=== PATIENT | male | born 1990 | race Caucasian/White ===

== ENCOUNTER 2018-05-07 17:06 | Emergency (ER) | payer MEDICAID, OTHER ==
[~2018-05-07] VITALS: Ht 182.9 cm; Wt 87.5 kg
[~2018-05-07 17:06] MED LIST: DICY10CA88 PO; HYDR25SU33 RC; NO HOME MEDS; VALA10002 PO
[2018-05-07 17:12] VITALS: BP 157/104
[2018-05-07 17:26] LABS: BASOPHILS % (AUTO) 0.2 % (0-1); EOSINOPHILS % (AUTO) 0.4 % (0-6); HEMATOCRIT 45.4 % (42.0-52.0); HEMOGLOBIN 15.8 g/dl (14.0-17.9); LYMPHOCYTES # (AUTO) 2.1 X10'3 (1.1-4.8); LYMPHOCYTES % (AUTO) 36.1 % (21-51); MEAN CORPUSCULAR HEMOGLOBIN 28.8 PG (27.0-31.0); MEAN CORPUSCULAR HGB CONC 34.8 % (33.0-36.5); MEAN CORPUSCULAR VOLUME 82.6 FL (78-98); MONOCYTES # (AUTO) 0.5 X10'3 (0-0.9); MONOCYTES % (AUTO) 8.6 % (2-12); NEUTROPHILS # (AUTO) 3.1 X10'3 (1.8-7.7); NEUTROPHILS % (AUTO) 54.7 % (42-75); PLATELET COUNT 261 X10'3 (140-440); RED BLOOD COUNT 5.49 X10'6 (4.70-6.10); RED CELL DISTRIBUTION WIDTH 12.4 % (11.5-14.5); WHITE BLOOD COUNT 5.7 X10'3 (4.5-11.0)
[2018-05-07 17:37] LABS: PARTIAL THROMBOPLASTIN TIME 23 SECONDS (22-32)
[2018-05-07 17:41] LABS: ALANINE AMINOTRANSFERASE 106 U/L (12-78); ALBUMIN 4.5 G/DL (3.4-5.0); ALBUMIN/GLOBULIN RATIO 1.1 (1.1-1.5); ALKALINE PHOSPHATASE 139 IU/L (46-116); ANION GAP 12 (8-16); ASPARTATE AMINO TRANSFERASE 46 U/L (10-37); BILIRUBIN,TOTAL 0.5 MG/DL (0.1-1.0); BLOOD UREA NITROGEN 10 MG/DL (7-18); BUN/CREATININE RATIO 9.3 (5.4-32.0); CALCIUM 9.2 MG/DL (8.5-10.1); CHLORIDE 105 MMOL/L (99-107); CREATININE 1.08 MG/DL (0.60-1.10); GLUCOSE 89 MG/DL (70-104); POTASSIUM 3.7 MMOL/L (3.5-5.1); SODIUM 143 MMOL/L (135-145); TOTAL CARBON DIOXIDE 25.9 MMOL/L (24-32); TOTAL PROTEIN 8.7 G/DL (6.4-8.2); eGFR 81 ML/MIN
== END 2018-05-07 23:20 | disposition left against medical advice (07) ==
LOC: ER 17:07
DX: R07.9 Chest pain, unspecified (principal); Z53.21 Procedure and treatment not carried out due to patient leaving prior to being seen by health care provider
CPT/HCPCS: 36415; 71045; 80053; 84484; 85025; 85610; 85730; 99281

== ENCOUNTER 2018-11-04 14:17 | Emergency (ER) | payer OTHER ==
[~2018-11-04] VITALS: Ht 182.9 cm; Wt 97.0 kg
[2018-11-04 14:20] VITALS: BP 160/101
[2018-11-04] MEDS ORDERED: LIDOcaine 1% w/epiNEPHrine 1:200,000 30ml vial IM ONE (15:45)
[2018-11-04] MEDS ORDERED: AMOX-422 PO (15:47)
== END 2018-11-04 16:01 | disposition home or self-care (01) ==
LOC: ER 14:17
DX: S02.5XXA Fracture of tooth (traumatic), initial encounter for closed fracture (principal); Z56.0 Unemployment, unspecified; Z88.5 Allergy status to narcotic agent; Z79.899 Other long term (current) drug therapy; X58.XXXA Exposure to other specified factors, initial encounter; Y93.89 Activity, other specified; Y92.89 Other specified places as the place of occurrence of the external cause; Y99.8 Other external cause status
CPT/HCPCS: 64402; 99284

== ENCOUNTER 2019-11-13 21:04 | Emergency (ER) | payer MEDICAID ==
[~2019-11-13] VITALS: Ht 182.9 cm; Wt 76.4 kg
[~2019-11-13 21:04] MED LIST changes: +ONDA8TAB6 PO
[2019-11-13 22:32] LABS: BASOPHILS % (AUTO) 0.1 % (0-1); EOSINOPHILS % (AUTO) 0 % (0-6); HEMATOCRIT 45.4 % (42.0-52.0); LYMPHOCYTES # (AUTO) 0.5 X10'3 (1.1-4.8); LYMPHOCYTES % (AUTO) 5.8 % (21-51); MEAN CORPUSCULAR HEMOGLOBIN 28.6 PG (27.0-31.0); MEAN CORPUSCULAR HGB CONC 35.1 g/dL (33.0-36.5); MEAN CORPUSCULAR VOLUME 81.4 FL (78-98); MEAN PLATELET VOLUME 8.9 FL (7.4-10.4); MONOCYTES # (AUTO) 0.4 X10'3 (0-0.9); MONOCYTES % (AUTO) 4.7 % (2-12); NEUTROPHILS # (AUTO) 7.7 X10'3 (1.8-7.7); NEUTROPHILS % (AUTO) 89.4 % (42-75); PLATELET COUNT 165 X10'3 (140-440); RED BLOOD COUNT 5.57 X10'6 (4.70-6.10); RED CELL DISTRIBUTION WIDTH 12.8 % (11.5-14.5); WHITE BLOOD COUNT 8.6 X10'3 (4.5-11.0)
[2019-11-13 22:39] LABS: ALANINE AMINOTRANSFERASE 59 U/L (12-78); ALBUMIN 4.1 G/DL (3.4-5.0); ALKALINE PHOSPHATASE 107 IU/L (46-116); ANION GAP 7 (8-16); ASPARTATE AMINO TRANSFERASE 24 U/L (10-37); BILIRUBIN,TOTAL 0.9 MG/DL (0.1-1.0); BLOOD UREA NITROGEN 13 MG/DL (7-18); BUN/CREATININE RATIO 9.6 (5.4-32.0); CHLORIDE 102 MMOL/L (99-107); CREATININE 1.35 MG/DL (0.60-1.10); GLUCOSE 97 MG/DL (70-104); POTASSIUM 3.9 MMOL/L (3.5-5.1); SODIUM 138 MMOL/L (135-145); TOTAL CARBON DIOXIDE 29.3 MMOL/L (24-32); TOTAL PROTEIN 8.1 G/DL (6.4-8.2); eGFR 62 ML/MIN
--- NOTE | 2019-11-13 22:53 | NUR ---
PT GOING TO RESTROOM FOR UA SAMPLE
[2019-11-13 23:26] VITALS: BP 140/90
[2019-11-13 23:29] LABS: URINE AMPHETAMINE SCREEN NEGATIVE (Neg); URINE BARBITUATE SCREEN NEGATIVE (Neg); URINE BENZODIAZEPINES SCREEN NEGATIVE (Neg); URINE CANNABINOID SCREEN NEGATIVE (Neg); URINE COCAINE SCREEN POSITIVE (Neg); URINE METHADONE SCREEN NEGATIVE (Neg); URINE OPIATE SCREEN NEGATIVE (Neg); URINE PHENCYCLIDINE SCREEN NEGATIVE (Neg)
== END 2019-11-13 23:28 | disposition home or self-care (01) ==
LOC: ER 21:05
DX: K62.5 Hemorrhage of anus and rectum (principal); Z56.0 Unemployment, unspecified; Z88.5 Allergy status to narcotic agent
CPT/HCPCS: 36415; 80053; 80305; 85025; 99283

== ENCOUNTER 2020-04-16 01:11 | Emergency (ER) | payer BC, MEDICAID ==
[~2020-04-16] VITALS: Ht 182.9 cm; Wt 106.8 kg
[2020-04-16] MEDS ORDERED: PENI500T2 PO (02:23)
[2020-04-16] MEDS ORDERED: ACET-3068 PO (02:23)
[2020-04-16] MEDS ORDERED: penicillin V potassium 500mg tablet PO ONE (02:40)
[2020-04-16] MEDS ORDERED: ibuprofen tablet 400 MG TABLET PO ONE (02:40)
[2020-04-16 02:47] VITALS: BP 156/106
== END 2020-04-16 02:49 | disposition home or self-care (01) ==
LOC: ER 01:11
DX: K08.89 Other specified disorders of teeth and supporting structures (principal); F10.10 Alcohol abuse, uncomplicated; Z88.5 Allergy status to narcotic agent; Z79.899 Other long term (current) drug therapy; Y90.9 Presence of alcohol in blood, level not specified
CPT/HCPCS: 99283

== ENCOUNTER 2021-02-16 08:11 | Emergency (ER) | payer MEDICAID ==
[~2021-02-16] VITALS: Ht 182.9 cm; Wt 98.2 kg
[2021-02-16 08:28] VITALS: BP 129/85
[2021-02-16] MEDS ORDERED: PENI500T2 PO (09:06)
== END 2021-02-16 09:26 | disposition home or self-care (01) ==
LOC: ER 08:12
DX: K04.7 Periapical abscess without sinus (principal); F17.200 Nicotine dependence, unspecified, uncomplicated; Z72.89 Other problems related to lifestyle; Z88.6 Allergy status to analgesic agent; Z88.0 Allergy status to penicillin; Z88.8 Allergy status to other drugs, medicaments and biological substances
CPT/HCPCS: 99283

== ENCOUNTER → 2021-09-21 | Emergency (ER) | payer MEDICAID, OTHER ==
[~2021-09-21] VITALS: Ht 182.9 cm; Wt 104.5 kg
[~2021-09-21] MED LIST changes: +CLIN300C70 PO; +HYDR-3965 PO
[2021-09-21 17:49] VITALS: BP 136/78
== END | disposition home or self-care (01) ==
LOC: ER 17:41
DX: K08.89 Other specified disorders of teeth and supporting structures (principal); K04.7 Periapical abscess without sinus; K02.9 Dental caries, unspecified; Z72.89 Other problems related to lifestyle; Z88.5 Allergy status to narcotic agent; Z79.2 Long term (current) use of antibiotics; Z79.899 Other long term (current) drug therapy
CPT/HCPCS: 99283

== ENCOUNTER 2022-03-17 21:24 | Emergency (ER) | payer MEDICAID, OTHER ==
[~2022-03-17] VITALS: Ht 182.9 cm; Wt 100.0 kg
[~2022-03-17 21:24] MED LIST changes: -CLIN300C70 PO; -HYDR-3965 PO
[2022-03-17] MEDS ORDERED: amox tr/potassium clavulanate 875/125mg TAB PO ONE (23:40)
[2022-03-18] MEDS ORDERED: AMOX-117 PO (00:02)
[2022-03-18] MEDS ORDERED: HYDR-3965 PO (00:02)
[2022-03-18] MEDS ORDERED: HYDROcodone/acetaminophen 5mg/325mg tablet PO ONE (00:05)
[2022-03-18 00:15] VITALS: BP 134/84
== END 2022-03-18 00:17 | disposition home or self-care (01) ==
LOC: ER 21:24
DX: K04.7 Periapical abscess without sinus (principal); Z72.89 Other problems related to lifestyle; Z87.19 Personal history of other diseases of the digestive system; Z79.899 Other long term (current) drug therapy; Z79.2 Long term (current) use of antibiotics
CPT/HCPCS: 99283

== ENCOUNTER 2023-12-01 19:05 | Emergency (ER) | payer SELFPAY ==
[~2023-12-01] VITALS: Ht 182.9 cm; Wt 108.7 kg
[2023-12-01 19:06] VITALS: BP 176/112; PULSE 80; RESP 16; TEMP 98.5; O2SAT 100
[2023-12-01] MEDS ORDERED: NAPR-56 PO (19:10)
[2023-12-01] MEDS ORDERED: DOXY-1 PO (19:10)
== END 2023-12-01 19:19 | disposition home or self-care (01) ==
LOC: ER 19:06
DX: K04.7 Periapical abscess without sinus (principal); F10.10 Alcohol abuse, uncomplicated; Y90.9 Presence of alcohol in blood, level not specified
CPT/HCPCS: 99283

== ENCOUNTER 2023-12-02 19:52 | Emergency (ER) | payer SELFPAY ==
[~2023-12-02] VITALS: Ht 182.9 cm; Wt 107.1 kg
[~2023-12-02 19:52] MED LIST changes: +DOXY-1 PO; +NAPR-56 PO
[2023-12-02 19:59] VITALS: BP 164/107; PULSE 73; TEMP 98.2; O2SAT 98
[2023-12-02] MEDS ORDERED: ketorolac trometh inj. 60 MG/2 ML VIAL IM ONE (20:25)
[2023-12-02 20:38] VITALS: RESP 20
== END 2023-12-02 20:50 | disposition home or self-care (01) ==
LOC: ER 19:54
DX: K04.7 Periapical abscess without sinus (principal); Z88.5 Allergy status to narcotic agent; Z79.2 Long term (current) use of antibiotics; Z79.1 Long term (current) use of non-steroidal anti-inflammatories (NSAID); Z79.899 Other long term (current) drug therapy
CPT/HCPCS: 96372; 99283; J1885

== ENCOUNTER 2023-12-04 12:38 | Emergency (ER) | payer SELFPAY ==
[~2023-12-04] VITALS: Ht 182.9 cm; Wt 105.6 kg
[2023-12-04 12:50] VITALS: TEMP 98.5
[2023-12-04 13:48] LABS: BASOPHILS % (AUTO) 0.2 % (0-1); EOSINOPHILS % (AUTO) 0.2 % (0-6); HEMATOCRIT 45.1 % (42.0-52.0); HEMOGLOBIN 15.6 g/dl (14.0-17.9); LYMPHOCYTES # (AUTO) 1.8 X10'3 (1.1-4.8); LYMPHOCYTES % (AUTO) 19.4 % (21-51); MEAN CORPUSCULAR HEMOGLOBIN 28.6 PG (27.0-31.0); MEAN CORPUSCULAR HGB CONC 34.6 g/dL (33.0-36.5); MEAN CORPUSCULAR VOLUME 82.7 FL (78-98); MEAN PLATELET VOLUME 9.3 FL (7.4-10.4); MONOCYTES # (AUTO) 0.7 X10'3 (0-0.9); MONOCYTES % (AUTO) 7.4 % (2-12); NEUTROPHILS # (AUTO) 6.6 X10'3 (1.8-7.7); NEUTROPHILS % (AUTO) 72.8 % (42-75); PLATELET COUNT 229 X10'3 (140-440); RED BLOOD COUNT 5.46 X10'6 (4.70-6.10); WHITE BLOOD COUNT 9.1 X10'3 (4.5-11.0)
[2023-12-04] MEDS ORDERED: iohexol 300mg/ml 100ml inj. ONE (13:59)
[2023-12-04 14:23] LABS: ALANINE AMINOTRANSFERASE 44 U/L (12-78); ALBUMIN 4.2 G/DL (3.4-5.0); ALBUMIN/GLOBULIN RATIO 0.9 (1.1-1.5); ALKALINE PHOSPHATASE 91 IU/L (46-116); ANION GAP 12 (8-16); ASPARTATE AMINO TRANSFERASE 18 U/L (10-37); BILIRUBIN,TOTAL 0.9 MG/DL (0.1-1.0); BLOOD UREA NITROGEN 12 MG/DL (7-18); BUN/CREATININE RATIO 12.1 (10.0-20.0); CALCIUM 9.5 MG/DL (8.5-10.1); CHLORIDE 102 MMOL/L (99-107); CREATININE 0.99 MG/DL (0.60-1.10); GLUCOSE 92 MG/DL (70-104); POTASSIUM 3.5 MMOL/L (3.5-5.1); SODIUM 138 MMOL/L (135-145); TOTAL CARBON DIOXIDE 23.9 MMOL/L (24-32); TOTAL PROTEIN 8.9 G/DL (6.4-8.2); eCRCL 115 ML/MIN; eGFR 87 ML/MIN
[2023-12-04] MEDS ORDERED: VANCOmycin 2,000MG in NS 500ml IV soln IV ONE (16:25)
[2023-12-04 17:16] LABS: BILIRUBIN,URINE NEGATIVE (Neg); CLARITY,URINE CLEAR (Clear); COLOR,URINE YELLOW (Yellow); GLUCOSE, URINE NEGATIVE (Neg); KETONES,URINE TRACE mg/dl (Neg); LEUKOCYTE ESTERASE ,URINE NEGATIVE (Neg); NITRITES, URINE NEGATIVE (Neg); OCCULT BLOOD,URINE NEGATIVE (Neg); PROTEIN,URINE NEGATIVE (Neg); UROBILINOGEN,URINE 0.2 E.U/dL (0.2-1.0)
[2023-12-04 17:29] LABS: UA COLLECTION TYPE CLN CATCH MIDSTREAM
[2023-12-04 20:04] VITALS: BP 142/92; PULSE 96; RESP 16; O2SAT 99
[2023-12-04] MEDS ORDERED: diphenhydrAMINE 50 mg/ml inj IV ONE (20:30)
== END 2023-12-04 21:36 | disposition left against medical advice (07) ==
LOC: ER 12:38
DX: M27.2 Inflammatory conditions of jaws (principal); L02.01 Cutaneous abscess of face; Z88.5 Allergy status to narcotic agent; Z79.899 Other long term (current) drug therapy
CPT/HCPCS: 36415; 70487; 71045; 80053; 81003; 83605; 84145; 85025; 87040; 93005; 96365; 96366; 96375; 99285; J1200; J3370; J3490; J7040; Q9967